=== PATIENT | male | born 1970 | race Two or more races ===

== ENCOUNTER → 2020-03-26 | Outpatient (CLI) | payer BC ==
[~2020-03-26] MED LIST: CONTRAST GIVEN. MC PRN; IOHEXOL 240 MG/ML 50ML VIAL. PO ONE; IOHEXOL 300 MG/ML 100ML VIAL. IV ONE
--- NOTE | 2020-03-26 14:51 | RAD ---
EXAM: CT Abdomen and Pelvis with IV contrast INDICATION: Reason: CHRONIC RLQ PAIN / Spl. Instructions: INJ 75ML OMNI 300, 30ML OMNI 240 PO / History: TECHNIQUE: Multi-detector row CT images were acquired from the lung bases through the abdomen and pelvis with the use of IV contrast. Sagittal and coronal images were acquired from the transaxial data. All CT scans performed at this facility utilize dose optimization techniques as appropriate to the exam, including the following: Automated exposure control and adjustment of the mA and/or KV according to patient size (this includes techniques or standardized protocols for targeted exams where dose is indication/reason for exam). IV CONTRAST: Administered ORAL CONTRAST: Administered COMPARISON: None FINDINGS: LOWER CHEST: Calcified granuloma at the right lower lobe anterior segment measuring 1 cm. Included lung bases otherwise clear. LIVER: Unremarkable BILIARY SYSTEM: Gallbladder is unremarkable. Bile ducts are not dilated. PANCREAS: Unremarkable SPLEEN: Unremarkable ADRENALS: Unremarkable KIDNEYS & URETERS: Unremarkable BLADDER: Unremarkable REPRODUCTIVE ORGANS: Unremarkable GASTROINTESTINAL: The stomach, small bowel, and colon are unremarkable. The appendix is normal. MESENTERY/PERITONEUM/RETROPERITONEUM: Unremarkable VASCULAR: Unremarkable LYMPH NODES: No adenopathy OSSEOUS & SOFT TISSUES: Unremarkable IMPRESSION: Normal CT of the abdomen and pelvis. No specific cause for right lower quadrant abdominal pain identified. In particular, the appendix is unremarkable. Electronically signed by: Bethany Abdi MD (03/26/2020 2:48 PM) [id number]
== END ==
LOC: CT 13:01
PROVIDERS: ATTEND Internal Medicine
DX: J98.4 Other disorders of lung (principal); J84.10 Pulmonary fibrosis, unspecified; R10.31 Right lower quadrant pain; R10.9 Unspecified abdominal pain
CPT/HCPCS: 74177; Q9966; Q9967